=== PATIENT | female | born 1960 | race Caucasian/White ===

== ENCOUNTER → 2017-11-09 | Outpatient (CLI) | payer OTHER ==
[~2017-11-09] MED LIST: ACEASPCAF PO; ACEBUTCAFT PO; LORA10ER PO; MULVITA PO; NAPR220 PO; NAPR250 PO; OMEGA 3; ZOLP10 PO
== END | disposition home or self-care (01) ==
LOC: PLD 13:51 → LAB SHORT 13:51
DX: D22.72 Melanocytic nevi of left lower limb, including hip (principal); D22.5 Melanocytic nevi of trunk
CPT/HCPCS: 88305

== ENCOUNTER → 2019-05-17 | Outpatient (CLI) | payer OTHER | LOC: LAB SHORT 11:17 → LAB 11:17 | DX: R30.0 Dysuria (principal) | CPT/HCPCS: 87086 ==